=== PATIENT | female | born 1965 | race Caucasian/White ===

== ENCOUNTER 2021-09-18 13:14 | Outpatient (CLI) | payer BC, SELFPAY ==
--- NOTE | 2021-09-18 13:20 | CRLHL7_ITS ---
For Patients: As a result of the Cures Act, medical imaging exams and procedure reports are released immediately into your electronic medical record. You may view this report before your referring provider. If you have questions, please contact your health care provider. BILATERAL MAMMOGRAM WITH COMPUTER-AIDED DETECTION AND TOMOSYNTHESIS TECHNIQUE: CC and MLO views were obtained. These mammographic images have been obtained using full-field digital technique. These mammographic images were interpreted with the benefit of computer-aided detection. Breast Tomosynthesis was used in this interpretation. COMPARISON FILM: 09/29/2018, 08/03/2014 diagnostic, 07/26/2014, 02/16/2013. FINDINGS: There are scattered areas of fibroglandular density IMPRESSION: There is no radiographic evidence for malignancy. ASSESSMENT: BI-RADS Category 1: Negative RECOMMENDATION: Routine screening mammogram in 1 year. A lay language report of this examination will be provided to the patient. Santy Schaffer M.D. Diagnostic Radiologist [email or web address] / be/Dictated by: Santy Schaffer MD @ 09/19/2021 1:58:00 PM (Electronically Signed)
== END 2021-09-18 13:15 | disposition home or self-care (01) ==
LOC: MAMMO 13:15
PROVIDERS: Visit Provider Physician Assistant
DX: Z12.31 Encounter for screening mammogram for malignant neoplasm of breast (principal)
CPT/HCPCS: 77063; 77067

== ENCOUNTER 2021-10-24 10:15 | Outpatient (CLI) | payer BC, SELFPAY ==
[2021-10-24 14:54] LABS: Cholesterol* 138 mg/dL (90-199); Glucose* 87 mg/dL (60-115); HDL Cholesterol* 47 mg/dL (>=50); LDL Cholesterol Calculated 79 mg/dL (<100); Triglycerides* 61 mg/dL (40-149)
== END 2021-10-24 10:16 | disposition home or self-care (01) ==
PROVIDERS: Visit Provider Physician Assistant
DX: Z00.00 Encounter for general adult medical examination without abnormal findings (principal); Z13.6 Encounter for screening for cardiovascular disorders; Z13.1 Encounter for screening for diabetes mellitus
CPT/HCPCS: 80061; 82947